=== PATIENT | female | born 1985 | race Caucasian/White ===

== ENCOUNTER → 2024-06-12 | Outpatient (CLI) | payer OTHER ==
[2024-06-12 07:44] LABS: BASO # 0.02 K/mm3 (0.02-0.10); EOS # 0.23 K/mm3 (0.04-0.40); HEMATOCRIT 36.8 % (37.0-47.0); HEMOGLOBIN 13.2 g/dL (12.5-16.0); LYMPH# 1.18 K/mm3 (1.50-4.00); MEAN CELL VOLUME 90 fl (78-100); MEAN CORPUSCULAR HEMOGLOBIN 32 pg (27-31); MEAN CORPUSCULAR HGB CONC 36 g/dL (33-37); MEAN PLATELET VOLUME 10.3 fl (7.4-10.4); MONO # 0.47 K/mm3 (0.20-0.80); NEU # 1.92 K/mm3 (1.40-6.50); PLATELET COUNT 314 K/mm3 (130-400); RED BLOOD COUNT 4.09 M/mm3 (4.10-5.30); WHITE BLOOD COUNT 3.8 K/mm3 (4.8-10.8)
[2024-06-12 07:59] LABS: ALBUMIN 4.4 g/dL (3.5-5.0)
[2024-06-12 08:00] LABS: CALCIUM 9.7 mg/dL (8.3-10.5)
[2024-06-12 08:01] LABS: TOTAL PROTEIN 7.1 g/dL (6.4-8.3)
[2024-06-12 08:03] LABS: TOTAL BILIRUBIN 0.9 mg/dL (0.2-1.2)
== END ==
LOC: LAB 07:34
PROVIDERS: Family Medicine
DX: E78.5 Hyperlipidemia, unspecified (principal); E03.9 Hypothyroidism, unspecified; I10 Essential (primary) hypertension

== ENCOUNTER → 2024-07-05 | Outpatient (CLI) | payer OTHER ==
[2024-07-05 23:35] LABS: FOLLICLE STIMULATING HORMONE 6.1 mIU/mL (()); LUTENIZING HORMONE 2.9 mIU/mL (()); PROGESTERONE 0.1 ng/mL (())
== END ==
LOC: LAB 12:52
PROVIDERS: Family Medicine
DX: N91.1 Secondary amenorrhea (principal)